=== PATIENT | female | born 1945 | race Caucasian/White ===

== ENCOUNTER 2025-05-08 11:02 | Inpatient (IN) | payer MEDICARE, BC ==
[2025-05-08] MEDS ORDERED: VALPROIC ACID 250 MG/5 ML PO SCH (20:00)
[2025-05-09] MEDS: Non-Formulary Medication 1 Each (Levetiracetam [Keppra] 1,000 MG Tablet) PO SCH (08:12)
[2025-05-09] MEDS: Divalproex Sodium Delayed-Release 125 MG Cap.Sprink PO SCH (08:16)
[2025-05-09] MEDS: Insulin Glargine,Human Rec. Analog 100 Units/ML 3 ML Pen SUBCUT SCH (08:17)
[2025-05-09] MEDS: Insulin Lispro 100 Unit/ML 3 ML KwikPen SUBCUT SCH (08:19)
[2025-05-18 09:41] LABS: BASOPHILS ABSOLUTE AUTO 0.03 K/uL (0.02-0.10); BASOPHILS PERCENT AUTO 0.4 % (0.0-0.5); EOSINOPHILS ABSOLUTE AUTO 0.11 K/uL (0.04-0.40); EOSINOPHILS PERCENT AUTO 1.3 % (1.0-5.0); LYMPHOCYTES ABSOLUTE AUTO 2.21 K/uL (1.50-4.00); LYMPHOCYTES PERCENT AUTO 26.5 % (20.0-40.0); MEAN PLATELET VOLUME 11.5 fL (6.0-10.0); MONOCYTES ABSOLUTE AUTO 0.58 K/uL (0.20-0.80); MONOCYTES PERCENT AUTO 6.9 % (3.0-10.0); NEUTROPHILS ABSOLUTE AUTO 5.42 K/uL (2.00-7.50); NEUTROPHILS PERCENT AUTO 64.9 % (45.0-70.0); PLATELET COUNT,PLT 151 K/uL (150-500); RED BLOOD CELL COUNT 4.65 M/uL (3.80-5.80); RED CELL DISTRIBUTION WIDTH 14.0 % (11.0-16.0); WHITE BLOOD CELL COUNT,WBC 8.4 K/uL (4.0-11.0)
[2025-05-18 10:01] LABS: A/G RATIO 0.8 (0.8-2.0); ALANINE AMINOTRANSFERASE,ALT 33.0 U/L (12-78); ASPARTATE AMNIOTRANSFERASE,AST 3.0 U/L (15-37); BILIRUBIN TOTAL 0.3 mg/dL (0.0-1.0); BLOOD UREA NITROGEN,BUN 12.0 mg/dL (8-26); CARBON DIOXIDE,CO2 33.7 mmol/L (21.0-32.0); CHLORIDE,CL 107.0 mmol/L (98-107); CREATININE 0.82 mg/dL (0.55-1.02); EST CRCL DRUG DOSING (CG) 48.42 mL/min; ESTIMATED GFR 72.0 mL/min (>60); GLUCOSE RANDOM 200.0 mg/dL (74-100); POTASSIUM,K 4.1 mmol/L (3.5-5.1); PROTEIN TOTAL,TP 5.4 g/dL (6.4-8.2); SODIUM,NA 147.0 mmol/L (136-145)
[2025-05-18 11:56] LABS: APPEARANCE,URINE CLOUDY (CLEAR); GLUCOSE,URINE 100 mg/dL (NEGATIVE); OCCULT BLOOD,URINE LARGE (NEGATIVE)
[2025-05-18 12:05] LABS: EPITHELIAL CELLS,URINE FEW /HPF; SQUAMOUS EPITHELIAL CELLS,UR FEW /HPF
[2025-05-19] MEDS: Lactobacillus Acidophilus/Lactobacillus Sporogenes (Probiotic) Tab PO SCH (10:16)
[2025-05-19] MEDS: Miconazole 2% Crm 30 GM Tube TOP SCH (22:05)
[2025-05-20 13:54] LABS: MEAN PLATELET VOLUME 12.0 fL (6.0-10.0); PLATELET COUNT,PLT 172.0 K/uL (150-500); RED BLOOD CELL COUNT 4.46 M/uL (3.80-5.80); RED CELL DISTRIBUTION WIDTH 14.3 % (11.0-16.0); WHITE BLOOD CELL COUNT,WBC 9.9 K/uL (4.0-11.0)
[2025-05-20 13:56] LABS: BLOOD UREA NITROGEN,BUN 19.0 mg/dL (8-26); CARBON DIOXIDE,CO2 26.8 mmol/L (21.0-32.0); CHLORIDE,CL 105.0 mmol/L (98-107); CREATININE 1.11 mg/dL (0.55-1.02); EST CRCL DRUG DOSING (CG) 35.77 mL/min; ESTIMATED GFR 50.0 mL/min (>60); GLUCOSE RANDOM 269.0 mg/dL (74-100); POTASSIUM,K 5.5 mmol/L (3.5-5.1); SODIUM,NA 140.0 mmol/L (136-145)
[2025-05-22 09:59] LABS: MEAN PLATELET VOLUME 11.0 fL (6.0-10.0); PLATELET COUNT,PLT 166.0 K/uL (150-500); RED BLOOD CELL COUNT 4.5 M/uL (3.80-5.80); RED CELL DISTRIBUTION WIDTH 14.5 % (11.0-16.0); WHITE BLOOD CELL COUNT,WBC 8.9 K/uL (4.0-11.0)
[2025-05-22 10:40] LABS: BLOOD UREA NITROGEN,BUN 22.0 mg/dL (8-26); CARBON DIOXIDE,CO2 28.6 mmol/L (21.0-32.0); CHLORIDE,CL 103.0 mmol/L (98-107); CREATININE 1.14 mg/dL (0.55-1.02); EST CRCL DRUG DOSING (CG) 34.83 mL/min; ESTIMATED GFR 48.0 mL/min (>60); GLUCOSE RANDOM 179.0 mg/dL (74-100); POTASSIUM,K 3.6 mmol/L (3.5-5.1); SODIUM,NA 143.0 mmol/L (136-145)
[2025-05-25] MEDS ORDERED: 50% Dextrose in Water 50 ML Syringe IVPUSH PRN ×2 (13:04→23:08)
[2025-05-25] MEDS ORDERED: Insulin Glargine,Human Rec. Analog 100 Units/ML 3 ML Pen SUBCUT SCH (20:00)
[2025-05-25] MEDS: Insulin Glargine,Human Rec. Analog 100 Units/ML 3 ML Pen SUBCUT ONE (23:26)
[2025-05-26] MEDS ORDERED: Insulin Glargine,Human Rec. Analog 100 Units/ML 3 ML Pen SUBCUT SCH ×2 (08:00→20:00)
[2025-05-26] MEDS: Magnesium Hydroxide 400 MG/5 ML Susp 30 ML Cup PO PRN (08:04)
[2025-05-26] MEDS: Insulin Glargine,Human Rec. Analog 100 Units/ML 3 ML Pen SUBCUT SCH ×2 (08:37→18:52)
[2025-05-29] MEDS: Insulin Glargine,Human Rec. Analog 100 Units/ML 3 ML Pen SUBCUT SCH (09:40)
== END 2025-05-30 13:05 | DRG 948 ==
LOC: UNDOADMIN 16:35 → LB.MS 16:35
PROVIDERS: ADMIT Family Medicine; ATTEND Family Medicine
DX: R53.1 Weakness (principal); C71.9 Malignant neoplasm of brain, unspecified; C71.1 Malignant neoplasm of frontal lobe; Z66 Do not resuscitate; G40.909 Epilepsy, unspecified, not intractable, without status epilepticus; E11.9 Type 2 diabetes mellitus without complications; E78.00 Pure hypercholesterolemia, unspecified; I10 Essential (primary) hypertension; E66.9 Obesity, unspecified; Z68.29 Body mass index [BMI] 29.0-29.9, adult; Z79.4 Long term (current) use of insulin; Z79.82 Long term (current) use of aspirin; Z79.899 Other long term (current) drug therapy; Z90.49 Acquired absence of other specified parts of digestive tract; Z87.891 Personal history of nicotine dependence
CPT/HCPCS: 36415; 80048; 80053; 81001; 82947; 83735; 85025; 85027; 87086; 92610-GN; 97110-GO; 97110-GP; 97116-GP; 97162-GP; 97165-GO; 97530-GO; 97530-GP; 97535-GO; A9270-GY; J1650; J1815-GY; J8540